=== PATIENT | male | born 1970 | race African-American/Black ===

== ENCOUNTER 2023-10-16 13:50 | Emergency (ER) | payer MEDICARE, MEDICAID ==
[~2023-10-16] VITALS: Ht 175.3 cm; Wt 114.0 kg
[2023-10-16 13:55] VITALS: O2SAT 96
[2023-10-16] MEDS ORDERED: CYCLOBENZAPRINE 10MG TABLET PO ONE (14:30)
[2023-10-16] MEDS ORDERED: KETOROLAC 60MG/2ML VIAL IM ONE (14:30)
[2023-10-16] MEDS ORDERED: ACETAMINOPHEN 325MG TABLET PO ONE (14:30)
[2023-10-16] MEDS ORDERED: IBUP-2030 MT (15:27)
[2023-10-16] MEDS ORDERED: CYCL5TAB MT (15:27)
[2023-10-16 17:27] VITALS: BP 165/78; PULSE 82; RESP 19; TEMP 98.1
== END 2023-10-16 17:29 | disposition home or self-care (01) ==
LOC: ER 13:50
DX: S16.1XXA Strain of muscle, fascia and tendon at neck level, initial encounter (principal); Z88.9 Allergy status to unspecified drugs, medicaments and biological substances; Z98.890 Other specified postprocedural states; Z86.59 Personal history of other mental and behavioral disorders; V49.9XXA Car occupant (driver) (passenger) injured in unspecified traffic accident, initial encounter; Y93.89 Activity, other specified; Y92.89 Other specified places as the place of occurrence of the external cause; Y99.8 Other external cause status
CPT/HCPCS: 99285; 70450; 73030; 73560; 72125; 96372; J1885